=== PATIENT | male | born 1970 | race Two or more races ===

== ENCOUNTER 2017-01-23 20:31 | Emergency (ER) | payer MEDICAID ==
[~2017-01-23] VITALS: Ht 175.3 cm; Wt 0.9 kg
[2017-01-23] MEDS ORDERED: HYDROCODONE/APAP 5-325MG TABLET PO ONE (22:00)
[2017-01-23] MEDS ORDERED: HYDROCODONE/APAP 5-325MG TABLET ONE (22:12)
--- NOTE | 2017-01-23 22:40 | NUR ---
Patient discharged to home in stable conditon. Written and verbal after care instructions given. Patient verbalizes understanding of instructions.
== END 2017-01-23 22:41 | disposition home or self-care (01) ==
LOC: ER 20:31
DX: S92.202A Fracture of unspecified tarsal bone(s) of left foot, initial encounter for closed fracture (principal); Z88.0 Allergy status to penicillin; Z88.6 Allergy status to analgesic agent; X58.XXXA Exposure to other specified factors, initial encounter; Y93.89 Activity, other specified; Y92.9 Unspecified place or not applicable; Y99.9 Unspecified external cause status
CPT/HCPCS: 29515; 73630; 99284; A4663

== ENCOUNTER 2020-06-13 15:42 | Emergency (ER) | payer MEDICAID ==
[~2020-06-13] VITALS: Ht 175.3 cm; Wt 77.1 kg
[2020-06-13] MEDS ORDERED: DOXY100T2 PO (16:45)
--- NOTE | 2020-06-13 16:51 | NUR ---
Patient discharged to home in stable condition with brisk steady gait. Written and verbal after care instructions given to patient. Patient verbalized understanding & compliance of instructions. Stressed follow up with his primary doctor in 2 days or return to ER for worsening s/s.
== END 2020-06-13 16:51 | disposition home or self-care (01) ==
LOC: ER 15:42
DX: J32.9 Chronic sinusitis, unspecified (principal); Z88.6 Allergy status to analgesic agent; Z88.0 Allergy status to penicillin
CPT/HCPCS: A4663

== ENCOUNTER 2021-08-09 16:58 | Emergency (ER) | payer MEDICAID ==
[~2021-08-09] VITALS: Ht 175.3 cm; Wt 77.1 kg
[~2021-08-09 16:58] MED LIST: DOXY100T2 PO
--- NOTE | 2021-08-09 17:55 | NUR ---
Dr Colby at the bedside for MSE.
[2021-08-09] MEDS ORDERED: COLCHICINE 0.6 MG TABLET PO ONE (18:00)
[2021-08-09] MEDS ORDERED: predniSONE 50 MG TABLET PO ONE (18:00)
[2021-08-09] MEDS ORDERED: COLCHICINE 0.6 MG TABLET ONE (18:04)
[2021-08-09] MEDS ORDERED: predniSONE 50 MG TABLET ONE (18:04)
[2021-08-09] MEDS ORDERED: INDO-12 PO (18:15)
[2021-08-09] MEDS ORDERED: PRED20TA PO (18:15)
[2021-08-09 18:21] VITALS: BP 114/80
--- NOTE | 2021-08-09 18:21 | NUR ---
Patient discharged to home in stable condition. Written and verbal after care instructions given. Patient verbalizes understanding of instructions. Stressed follow up or return to ER for worsening s/s.
== END 2021-08-09 18:25 | disposition home or self-care (01) ==
LOC: ER 17:01
DX: M25.532 Pain in left wrist (principal); Z88.6 Allergy status to analgesic agent; Z88.0 Allergy status to penicillin; Z86.39 Personal history of other endocrine, nutritional and metabolic disease
CPT/HCPCS: 29125; 99283; J7512; A4663

== ENCOUNTER 2021-08-24 08:27 | Emergency (ER) | payer MEDICAID ==
[~2021-08-24] VITALS: Ht 175.3 cm; Wt 77.1 kg
[~2021-08-24 08:27] MED LIST changes: +INDO-12 PO; +PRED20TA PO
--- NOTE | 2021-08-24 08:41 | NUR ---
DR LAZO AT BEDSIDE FOR EVALUATION.
[2021-08-24 09:13] LABS: HEMATOCRIT 46.9 % (36.7-47.1); MEAN CORPUSCULAR HEMOGLOBIN 29.9 uug (23.8-33.4); MEAN CORPUSCULAR VOLUME 84.8 fL (73.0-96.2); PLATELET COUNT (AUTO) 203 K/uL (152-348)
[2021-08-24 09:21] LABS: CREATININE 1.1 mg/dL (0.6-1.3); POTASSIUM 4.1 mmol/L (3.5-5.1)
[2021-08-24 09:26] LABS: BILIRUBIN,DIRECT 0.1 mg/dL (0.0-0.2); BILIRUBIN,TOTAL 0.4 mg/dL (0.2-1.0); TOTAL PROTEIN, SERUM 7.5 g/dL (6.4-8.2)
[2021-08-24] MEDS ORDERED: LIDOCAINE VISCUS 2% 15 ML UDC MM ONE (10:00)
[2021-08-24] MEDS ORDERED: MAG HYDROX/AL HYDROX/SIMETH 30 ML LIQUID UDC PO ONE (10:00)
[2021-08-24] MEDS ORDERED: KETOROLAC TROMETHAMINE 30 MG INJ ONE (10:05)
[2021-08-24 10:06] LABS: *BILIRUBIN,URIN NEGATIVE (NEGATIVE); *BLOOD, URINE NEGATIVE (NEGATIVE); *CLARITY,URINE CLEAR (CLEAR); *COLOR,URINE YELLOW (YELLOW); *KETONES,URINE NEGATIVE (NEGATIVE); *UROBILINOGEN,URINE 0.2 E.U./dl (NORMAL); LEUKOCYTE ESTERASE ,URINE NEGATIVE (NEGATIVE); NITRITE, URINE NEGATIVE (NEGATIVE); PH,URINE 5.5 (5.0-8.0); UGLUCOSE NEGATIVE (NEGATIVE)
[2021-08-24] MEDS ORDERED: LIDOCAINE VISCUS 2% 15 ML UDC ONE (10:06)
[2021-08-24] MEDS ORDERED: MAG HYDROX/AL HYDROX/SIMETH 30 ML LIQUID UDC ONE (10:06)
[2021-08-24] MEDS ORDERED: KETOROLAC TROMETHAMINE 30 MG INJ IVP ONE (10:15)
[2021-08-24] MEDS ORDERED: FAMO-132 PO (10:25)
[2021-08-24] MEDS ORDERED: TAMS-3 PO (10:28)
[2021-08-24] MEDS ORDERED: NYST5ORA PO (10:37)
--- NOTE | 2021-08-24 10:50 | NUR ---
PT WAS D/C'd TO HOME. D/C INSTRUCTIONS GIVEN TO THE PT BY DR LAZO.
[2021-08-24 10:56] VITALS: BP 141/76
== END 2021-08-24 11:51 | disposition home or self-care (01) ==
LOC: ER 08:27
DX: R10.13 Epigastric pain (principal); N40.0 Benign prostatic hyperplasia without lower urinary tract symptoms; N39.0 Urinary tract infection, site not specified; K57.30 Diverticulosis of large intestine without perforation or abscess without bleeding; Z88.6 Allergy status to analgesic agent; Z88.0 Allergy status to penicillin
CPT/HCPCS: 36415; 74176; 76705; 80048; 80076; 81003; 83690; 85025; 96374; 99285; J1885; A4663; J7040